=== PATIENT | male | born 1975 | race Caucasian/White ===

== ENCOUNTER 2017-04-03 05:55 | Day surgery (SDC) | payer OTHER ==
[~2017-04-03] VITALS: Ht 182.9 cm; Wt 87.1 kg
[2017-04-03 06:32] VITALS: O2SAT 100
[2017-04-03] MEDS ORDERED: CEFAZOLIN SOD 2 GM in D5W 50 ML IV ONE (07:00)
[2017-04-03] MEDS ORDERED: MIDAZOLAM HCL 5 MG/5 ML VIAL IVP ONE (07:03)
[2017-04-03] MEDS ORDERED: PROPOFOL 200MG/ 20ML VIAL (DIPRIVAN) IV ONE (07:03)
[2017-04-03] MEDS ORDERED: fentaNYL CITRATE 250 MCG/5 ML AMP IV ONE (07:03)
[2017-04-03] MEDS ORDERED: SEVOFLURANE 15 MIN GAS INH ONE (07:03)
[2017-04-03] MEDS ORDERED: NS 1000 ML BAG IV ONE (07:03)
[2017-04-03] MEDS ORDERED: KETOROLAC TROMETHAMINE 30 MG VIAL IVP ONE (07:03)
[2017-04-03] MEDS ORDERED: ONDANSETRON HCL 4 MG/2 ML VIAL IVP ONE (07:03)
[2017-04-03] MEDS ORDERED: LR 1,000 ML IV.SOLN IV ONE (07:03)
[2017-04-03] MEDS ORDERED: POLYMYXIN 500,000/BACIT.10,000 UNITS in NS IRR 1 L IR ONE (07:23)
[2017-04-03] MEDS ORDERED: LR 1,000 ML IV SCH (07:57)
[2017-04-03] MEDS ORDERED: MEPERIDINE HCL/PF 25 MG/ML DISP.SYRIN IVP PRN ×2 (08:00)
[2017-04-03] MEDS ORDERED: ONDANSETRON HCL 4 MG/2 ML VIAL IVP PRN (08:00)
[2017-04-03] MEDS ORDERED: HYDROmorphone 1 MG INJ. 1 MG/ML AMPUL IVP PRN (08:00)
[2017-04-03] MEDS ORDERED: HYDROmorphone 2 MG/ML VIAL IVP PRN ×2 (08:00)
[2017-04-03] MEDS ORDERED: KETOROLAC TROMETHAMINE 30 MG VIAL IVP PRN (08:00)
[2017-04-03 09:20] VITALS: BP 102/61; PULSE 64; RESP 14
== END 2017-04-03 10:10 | disposition home or self-care (01) ==
LOC: SMU 05:55 → SDS 05:55
PROVIDERS: ATTEND Orthopaedic Surgery Sports Medicine
DX: L72.0 Epidermal cyst (principal); M71.322 Other bursal cyst, left elbow
CPT/HCPCS: 24066; 88305; J0690; J1885; J2250; J2405; J2704; J3010; J7030; J7060; J7120